=== PATIENT | female | born 1960 | race Caucasian/White ===

== ENCOUNTER → 2019-08-14 | Outpatient (CLI) | payer BC ==
[2019-08-14 12:18] LABS: Urine Bacteria NONE SEEN /hpf (None Seen); Urine Blood Negative /uL (Negative); Urine Specific Gravity 1.018 (1.001-1.035); Urine WBC 4 /hpf (0 - 5)
[2019-08-14 12:37] LABS: Basophils # (auto) 0 uL; Eosinophils # (auto) 0.2 uL; Eosinophils % (auto) 4.4 % (0.0-7.0); Hematocrit 48.2 % (36.0-46.0); Hemoglobin 16.7 g/dL (12.2-16.2); Lymphocytes # (auto) 1.7 uL; Lymphocytes % (auto) 38.5 % (10.0-50.0); Mean Corpuscular Hemoglobin 31.8 pg (28.0-32.0); Mean Corpuscular Hgb Conc. 34.7 g/dL (32.0-36.0); Mean Corpuscular Volume 91.7 fL (80.0-100.0); Monocytes # (auto) 0.2 uL; Monocytes % (auto) 4.7 % (0.0-12.0); Neutrophils # (auto) 2.2 uL; Neutrophils % (auto) 51.4 % (37.0-80.0); Nucleated Red Blood Cells % 0.2 %; Platelet Count (auto) 167 10^3/uL (140-450); Red Blood Cells 5.26 10^6/uL (4.0-5.20); Red Cell Distribution Width 13.3 % (11.8-14.3); White Blood Cell 4.3 10^3/uL (4.4-10.8)
[2019-08-14 13:21] LABS: Albumin 4.2 g/dL (3.4-5.0); Calcium 9.4 mg/dL (8.5-10.1); Potassium 3.9 mmol/L (3.5-5.1)
[2019-08-14 13:27] LABS: BUN/Creatinine Ratio 18.7; Bilirubin, Total 0.6 mg/dL (0.2-1.0); Total Protein 7.9 g/dL (6.4-8.2)
[2019-08-14 13:43] LABS: Hepatitis B Surface Antibody Negative
[2019-08-14 14:21] LABS: Hepatitis A Total Antibody Negative
== END | disposition home or self-care (01) ==
LOC: LAB 11:32
PROVIDERS: ATTEND Family Medicine
DX: Z11.59 Encounter for screening for other viral diseases (principal); Z11.4 Encounter for screening for human immunodeficiency virus [HIV]; I10 Essential (primary) hypertension; E66.9 Obesity, unspecified
CPT/HCPCS: 36415; 80053; 80061; 81001; 82306; 84443; 85025; 86703; 86704; 86706; 86708; 86803; 87340

== ENCOUNTER → 2021-02-20 | Outpatient (CLI) | payer BC ==
[2021-02-20 07:55] LABS: Basophils # (auto) 0 10 ^3/uL (0-0.2); Basophils % (auto) 0.8 % (0.0-2.0); Eosinophils # (auto) 0.2 10 ^3/uL (0-0.8); Hematocrit 43.9 % (36.0-46.0); Hemoglobin 15.5 g/dL (12.2-16.2); Mean Corpuscular Hemoglobin 33.1 pg (28.0-32.0); Mean Corpuscular Hgb Conc. 35.4 g/dL (32.0-36.0); Mean Corpuscular Volume 93.4 fL (80.0-100.0); Monocytes # (auto) 0.3 10 ^3/uL (0-1.3); Monocytes % (auto) 5.3 % (0.0-12.0); Neutrophils # (auto) 2.6 10 ^3/uL (1.6-8.6); Neutrophils % (auto) 50.9 % (37.0-80.0); Nucleated Red Blood Cells % 0.6 %; Platelet Count (auto) 150 10^3/uL (140-450); Red Cell Distribution Width 12.8 % (11.8-14.3); White Blood Cell 5.1 10^3/uL (4.4-10.8)
[2021-02-20 08:05] LABS: Urine Bacteria NONE SEEN /hpf (None Seen); Urine Blood Negative /uL (Negative); Urine Specific Gravity 1.002 (1.001-1.035); Urine WBC 6 /hpf (0 - 5)
[2021-02-20 08:37] LABS: Albumin 3.8 g/dL (3.4-5.0); Calcium 9.5 mg/dL (8.5-10.1); Potassium 3.7 mmol/L (3.5-5.1)
[2021-02-20 08:48] LABS: BUN/Creatinine Ratio 12.2; Bilirubin, Total 0.7 mg/dL (0.2-1.0); Total Protein 7.2 g/dL (6.4-8.2)
== END | disposition home or self-care (01) ==
LOC: LAB 07:31
PROVIDERS: ATTEND Family Medicine
DX: I10 Essential (primary) hypertension (principal); E78.2 Mixed hyperlipidemia; R00.2 Palpitations; E66.09 Other obesity due to excess calories; E55.9 Vitamin D deficiency, unspecified; Z83.3 Family history of diabetes mellitus
CPT/HCPCS: 36415; 80053; 80061; 81001; 82306; 83036; 84443; 85025